=== PATIENT | female | born 1960 | race Caucasian/White ===

== ENCOUNTER 2018-05-08 13:49 | Emergency (ER) | payer OTHER ==
[~2018-05-08] VITALS: Ht 157.5 cm; Wt 66.7 kg
[2018-05-08 13:53] VITALS: Ht 157.5 cm; Wt 66.7 kg
[2018-05-08 14:52] LABS: PLATELET COUNT 322 x10^3mcL (130-400)
[2018-05-08 14:54] LABS: RED CELL DISTRIBUTION WIDTH 14.8 % (11.5-14.5)
[2018-05-08 15:06] LABS: CALCIUM 9.4 mg/dL (8.5-10.1); CHLORIDE SERUM 102 mmol/L (98-107); CREATININE SERUM 0.8 mg/dL (0.6-1.0); GFR1 > 60 mL/min; GLUCOSE SERUM 93 mg/dL (74-106); POTASSIUM SERUM 3.9 mmol/L (3.5-5.1); SODIUM SERUM 137 mmol/L (136-145)
[2018-05-08 15:12] LABS: ALBUMIN 4.1 g/dL (3.4-5.0); ALKALINE PHOSPHATASE 95 U/L (46-116); ALT/SGPT 24 U/L (14-59); AST/SGOT 14 U/L (15-37); BILIRUBIN TOTAL 0.4 mg/dL (0.20-1.00); HDL CHOLESTEROL 52 mg/dL (40-60); TOTAL PROTEIN, SERUM 8.2 g/dL (6.4-8.2); TRIGLYCERIDES 99 mg/dL (<150)
[2018-05-08 15:18] LABS: CHOLESTEROL 276 mg/dL (<200); CHOLESTEROL/HDL RATIO 5.3
[2018-05-08 15:25] LABS: AMPHETAMINE QUAL UR NONE DETECTED (See below)
[2018-05-08 16:22] VITALS: BP 131/76
== END 2018-05-08 16:22 | disposition home or self-care (01) ==
LOC: ED 13:49
PROVIDERS: Emergency Medicine
DX: K20.9 Esophagitis, unspecified (principal); E78.00 Pure hypercholesterolemia, unspecified; Z98.82 Breast implant status; Z90.89 Acquired absence of other organs
CPT/HCPCS: 36415; Q0092